=== PATIENT | female | born 1995 | race Two or more races ===

== ENCOUNTER 2018-06-13 11:48 | Emergency (ER) | payer MEDICAID ==
[~2018-06-13] VITALS: Ht 154.9 cm; Wt 61.2 kg
[2018-06-13 12:15] VITALS: BP 146/83
== END 2018-06-13 13:41 | disposition home or self-care (01) ==
LOC: ER 11:52
DX: S83.92XA Sprain of unspecified site of left knee, initial encounter (principal); S83.91XA Sprain of unspecified site of right knee, initial encounter; X50.3XXA Overexertion from repetitive movements, initial encounter; Y93.89 Activity, other specified; Y99.8 Other external cause status; Y92.89 Other specified places as the place of occurrence of the external cause